=== PATIENT | male | born 1970 | race Caucasian/White ===

== ENCOUNTER → 2017-12-30 | Outpatient (CLI) | payer OTHER ==
--- NOTE | 2017-12-30 13:22 | DIAGNOSTIC IMAGING REPORT ---
PELVIS/BILATERAL HIP 2 VIEWS CLINICAL HISTORY: BILAT HIP PAIN pain COMPARISON STUDY: No previous studies for comparison. FINDINGS: Severe degenerative change bilaterally. Peripheral osteophytic reaction of the acetabulum. No evidence for acetabular protrusion. All remaining bony structures are unremarkable. 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 No acute process. The above report was generated using voice recognition software. It may contain grammatical, syntax or spelling errors. Electronically signed by: Jet Aguirre M.D. 12/30/2017 1:21 PM Dictated Date/Time: 12/30/2017 1:20 PM
== END | disposition home or self-care (01) ==
LOC: C.RAD1850 11:55
PROVIDERS: ATTEND Family Medicine
DX: M25.551 Pain in right hip (principal); M25.552 Pain in left hip